=== PATIENT | male | born 1970 | race Caucasian/White ===

== ENCOUNTER 2020-02-04 15:29 | Outpatient (CLI) | payer BC ==
--- NOTE | 2020-02-04 16:19 | XRAY Report ---
Reason: FOOT JOINT PAIN,RIGHT Procedure Date: 02/04/2020 Accession Number: [id number] / [id number] Procedure: XR - Foot 3 View RT CPT Code: Final Report FULL RESULT: PROCEDURE: Foot 3 View RT INDICATIONS: FOOT JOINT PAIN,RIGHT TECHNIQUE: 3 views of the foot were acquired. COMPARISON: None. FINDINGS: Bones: No fractures or dislocations. No suspicious bony lesions. Mild first MTP joint degeneration. Diffuse interphalangeal joint degeneration. Prominent anterior dorsal talar osteophyte. Soft tissues: No tibiotalar joint effusion. Achilles tendon appears normal. IMPRESSION: Degenerative changes as above, including prominent anterior dorsal talar osteophyte raising possibility of hindfoot coalition. This could be further assessed with dedicated ankle MRI as clinically warranted Reviewed by: Will Landon MD on 02/04/2020 4:18 PM PDT Approved by: Will Landon MD on 02/04/2020 4:18 PM PDT Station ID: [id number]
== END 2020-02-04 15:30 | disposition home or self-care (01) ==
LOC: DI 15:29
PROVIDERS: ATTEND Nurse Practitioner
DX: M19.071 Primary osteoarthritis, right ankle and foot (principal)

== ENCOUNTER 2021-07-28 08:00 | Outpatient (CLI) | payer BC | END 2021-07-28 23:59 | disposition home or self-care (01) | LOC: LAB.N 08:00 | PROVIDERS: ATTEND Family Medicine | DX: R53.81 Other malaise (principal); R53.83 Other fatigue; Z20.822 Contact with and (suspected) exposure to COVID-19 ==

== ENCOUNTER 2023-01-16 12:57 | Outpatient (CLI) | payer OTHER ==
[2023-01-16 17:49] LABS: BASOPHILS # (AUTO) 0.1 10^3/uL (0.0-0.1); BASOPHILS % (AUTO) 0.8 %; EOSINOPHILS # (AUTO) 0.1 10^3/uL (0.0-0.7); EOSINOPHILS % (AUTO) 2.2 %; HCT - HEMATOCRIT 46.9 % (42.0-52.0); HGB - HEMOGLOBIN 15.3 g/dL (14.0-18.0); LYMPHOCYTES # (AUTO) 1.4 10^3/uL (1.5-3.5); LYMPHOCYTES % (AUTO) 22.7 %; MEAN CORPUSCULAR HGB CONC 32.6 g/dL (32.0-36.0); MEAN PLATELET VOLUME 10.7 fL (7.4-11.4); MONOCYTES # (AUTO) 0.6 10^3/uL (0.0-1.0); MONOCYTES % (AUTO) 9.2 %; NEUTROPHILS # (AUTO) 3.9 10^3/uL (1.5-6.6); NEUTROPHILS % (AUTO) 64.9 %; PLT - PLATELET COUNT 203 10^3/uL (130-450); RED CELL DISTRIBUTION WIDTH 12.6 % (12.0-15.0)
[2023-01-16 18:11] LABS: ALBUMIN 3.8 g/dL (3.2-5.5); ALBUMIN/GLOBULIN RATIO 1.1 (1.0-2.2); ALKALINE PHOSPHATASE 58 IU/L (42-121); ALT ALANINE AMINOTRANSFERASE 28 IU/L (10-60); AST ASPARTATE AMINOTRANSFERASE 20 IU/L (10-42); BILIRUBIN,TOTAL 0.6 mg/dL (0.2-1.0); BUN - BLOOD UREA NITROGEN 10 mg/dL (6-20); CALCIUM 8.9 mg/dL (8.5-10.3); CARBON DIOXIDE - CO2 29 mmol/L (21-32); CHLORIDE 104 mmol/L (101-111); CHOL/HDL RATIO 2.8 (<5.0); CHOLESTEROL 157 mg/dL; CREATININE 0.6 mg/dL (0.6-1.2); GFR - MDRD 142 (>89); GLUCOSE 98 mg/dL (70-100); HDL CHOLESTEROL 57 mg/dL; LDL CHOLESTEROL,CALCULATED 75 mg/dL; LDL/HDL RATIO 1.3 (<3.6); POTASSIUM 3.9 mmol/L (3.5-5.0); SODIUM 139 mmol/L (135-145); TOTAL PROTEIN 7.3 g/dL (6.7-8.2); TRIGLYCERIDES 126 mg/dL; VLDL CHOLESTEROL 25 mg/dL
[2023-01-16 18:17] LABS: THYROID STIMULATING HORMONE 2.2 uIU/mL (0.34-5.60)
== END 2023-01-16 12:58 | disposition home or self-care (01) ==
LOC: LAB.N 12:57
PROVIDERS: ATTEND Physician Assistant
DX: Z79.899 Other long term (current) drug therapy (principal); Z13.220 Encounter for screening for lipoid disorders; Z12.5 Encounter for screening for malignant neoplasm of prostate
CPT/HCPCS: 36415; 80053; 80061; 83721; 84153; 84443; 85025

== ENCOUNTER 2024-03-14 09:13 | Outpatient (CLI) | payer OTHER ==
[2024-03-14 09:23] LABS: BASOPHILS # (AUTO) 0.1 10^3/uL (0.0-0.1); BASOPHILS % (AUTO) 0.8 %; EOSINOPHILS # (AUTO) 0.1 10^3/uL (0.0-0.7); EOSINOPHILS % (AUTO) 2.3 %; HCT - HEMATOCRIT 46.8 % (42.0-52.0); HGB - HEMOGLOBIN 15.2 g/dL (14.0-18.0); LYMPHOCYTES # (AUTO) 1.3 10^3/uL (1.5-3.5); LYMPHOCYTES % (AUTO) 22.1 %; MEAN CORPUSCULAR HGB CONC 32.5 g/dL (32.0-36.0); MEAN CORPUSCULAR VOLUME 92.3 fL (80.0-94.0); MONOCYTES # (AUTO) 0.5 10^3/uL (0.0-1.0); MONOCYTES % (AUTO) 8.5 %; NEUTROPHILS # (AUTO) 3.9 10^3/uL (1.5-6.6); NEUTROPHILS % (AUTO) 65.8 %; PLT - PLATELET COUNT 176 10^3/uL (130-450); RED BLOOD COUNT 5.07 10^6/uL (4.70-6.10); RED CELL DISTRIBUTION WIDTH 12.8 % (12.0-15.0)
[2024-03-14 09:37] LABS: ALBUMIN 3.8 g/dL (3.2-5.5); ALBUMIN/GLOBULIN RATIO 1.3 (1.0-2.2); ALKALINE PHOSPHATASE 54 IU/L (42-121); ALT ALANINE AMINOTRANSFERASE 17 IU/L (10-60); AST ASPARTATE AMINOTRANSFERASE 13 IU/L (10-42); BILIRUBIN,TOTAL 0.5 mg/dL (0.2-1.0); BUN - BLOOD UREA NITROGEN 10 mg/dL (6-20); CARBON DIOXIDE - CO2 31 mmol/L (21-32); CHLORIDE 103 mmol/L (101-111); CHOL/HDL RATIO 2.5 (<5.0); CHOLESTEROL 162 mg/dL; CREATININE 0.7 mg/dL (0.6-1.3); GFR - MDRD 118 (>89); GLUCOSE 90 mg/dL (74-104); HDL CHOLESTEROL 65 mg/dL; LDL CHOLESTEROL,CALCULATED 53 mg/dL; LDL/HDL RATIO 0.8 (<3.6); POTASSIUM 3.9 mmol/L (3.5-4.5); SODIUM 138 mmol/L (135-145); TOTAL PROTEIN 6.8 g/dL (6.4-8.9); TRIGLYCERIDES 218 mg/dL; VLDL CHOLESTEROL 44 mg/dL
[2024-03-14 09:52] LABS: THYROID STIMULATING HORMONE 1.91 uIU/mL (0.34-5.60)
== END 2024-03-14 09:14 | disposition home or self-care (01) ==
LOC: LAB 09:13
PROVIDERS: ATTEND Physician Assistant
DX: Z13.220 Encounter for screening for lipoid disorders (principal); Z13.29 Encounter for screening for other suspected endocrine disorder; Z79.899 Other long term (current) drug therapy
CPT/HCPCS: 36415; 80053; 80061; 83721; 84443; 85025